=== PATIENT | male | born 1980 | race Two or more races ===

== ENCOUNTER 2016-11-18 16:46 | Emergency (ER) | payer SELFPAY ==
[~2016-11-18] VITALS: Ht 188 cm; Wt 74.8 kg
[2016-11-18 17:30] LABS: BASOPHILS # (AUTO) 0.5 /CMM (0.0-0.2); BASOPHILS % (AUTO) 4.6 % (0.0-2.0); DIFF TOTAL % 100 %; EOSINOPHILS % (AUTO) 0.4 % (0.0-6.0); HEMATOCRIT 47 % (39-51); HEMOGLOBIN 16.3 g/dL (13.5-17.5); LYMPHOCYTES % (AUTO) 8.3 % (20.0-44.0); MEAN CORPUSCULAR HEMOGLOBIN 29 PG (26.0-33.0); MEAN CORPUSCULAR HGB CONC 34 g/dl (31.0-36.0); MEAN CORPUSCULAR VOLUME 85 fL (80-96); MONOCYTES # (AUTO) 1.1 /CMM (0.1-1.30); MONOCYTES % (AUTO) 8.9 % (2.0-12.0); NEUTROPHILS # (AUTO) 9.2 /CMM (1.8-8.9); NEUTROPHILS % (AUTO) 77.8 % (43.0-81.0); PLATELET COUNT (AUTO) 268 /CMM (150-450); RED BLOOD CELL COUNT(AUTO) 5.59 MIL/uL (4.5-6.0); WHITE BLOOD COUNT (AUTO) 11.8 K/uL (4.3-11.0)
[2016-11-18 17:34] LABS: ALANINE AMINOTRANSFERASE 56 U/L (12-78); ALBUMIN 4.7 g/dL (3.4-5.0); ANION GAP 15 (5-14); ASPARTATE AMINOTRANSFERASE 60 U/L (15-37); BILIRUBIN,DIRECT 0.3 mg/dL (0.0-0.2); BILIRUBIN,TOTAL 1.3 mg/dL (0.2-1.0); CALCIUM, SERUM 9.1 mg/dL (8.5-10.1); CARBON DIOXIDE 27 mmol/L (21-32); CHLORIDE 98 mmol/L (98-107); GFR 85 mL/min (>60); GLUCOSE 95 mg/dL (74-106); POTASSIUM 3.9 mmol/L (3.5-5.1); SALICYLATE 2.8 mg/dL (2.8-20.0); SODIUM SERUM 136 mmol/L (136-145); TOTAL PROTEIN, SERUM 8.6 g/dL (6.4-8.2); UREA NITROGEN, BLOOD 15 mg/dL (7-18)
[2016-11-18 17:34] LABS: KETONES,URINE 40 (NEGATIVE); LEUKOCYTE ESTERASE ,URINE Negative (NEGATIVE)
[2016-11-18 17:39] LABS: CANNABINOID, URINE NEGATIVE (NEGATIVE); PHENCYCLIDINE SCREEN,URINE NEGATIVE (NEGATIVE)
[2016-11-18 17:41] LABS: ACETAMINOPHEN 0 ug/ml (10-30)
[2016-11-18 17:48] LABS: ADD UA MICROSCOPIC YES
[2016-11-18] MEDS ORDERED: LORAZEPAM INJ 2 MG/ML VIAL ONE (17:49)
[2016-11-18] MEDS ORDERED: IV NS 0.9% 1,000 ML ONE (17:49)
[2016-11-18] MEDS ORDERED: IV SET PRIMARY 1 EA INFUS.SET MC ONE (17:49)
[2016-11-18 17:51] LABS: ADD URINE CULTURE NO; WBC,URINE 0-2 /HPF (0-3)
[2016-11-18] MEDS ORDERED: LORAZEPAM INJ 2 MG/ML VIAL IV ONE (18:00)
[2016-11-18] MEDS ORDERED: IV NS 0.9% 1,000 ML BAG IV ONE (18:00)
[2016-11-18 18:47] LABS: LYMPHOCYTES % (MANUAL) 9 % (16-48)
[2016-11-18 18:49] LABS: PLATELET ESTIMATE ADEQUATE
[2016-11-19 05:55] VITALS: BP 128/75
== END 2016-11-19 05:56 | disposition home or self-care (01) ==
LOC: ER 16:48
DX: F10.129 Alcohol abuse with intoxication, unspecified (principal); F15.10 Other stimulant abuse, uncomplicated; D72.829 Elevated white blood cell count, unspecified
CPT/HCPCS: 36415; 80048-TC; 80076-TC; 80305; 81000-TC; 85025-TC; A4606; G6038-TC; G6039-TC; G6040-TC; J2060; J7030; Z7610

== ENCOUNTER 2018-06-28 08:47 | Emergency (ER) | payer OTHER ==
[~2018-06-28] VITALS: Ht 190.5 cm; Wt 81.6 kg
[2018-06-28 08:47] VITALS: BP 186/80
== END 2018-06-28 09:24 | disposition home or self-care (01) ==
LOC: ER 08:48
DX: F15.10 Other stimulant abuse, uncomplicated (principal)
CPT/HCPCS: 71045; 99283; A4606; Z7610

== ENCOUNTER 2018-10-19 00:37 | Emergency (ER) | payer MEDICAID, OTHER ==
[~2018-10-19] VITALS: Ht 177.8 cm; Wt 83.9 kg
--- NOTE | 2018-10-19 00:40 | NUR ---
Pt BIBRA C/O "Doing a lot of meth". Pt very anxious and restless. Pt admits to abuse alcohol. Pt is tachycardic in the 130s, tachypnic. Pt denies HI and SI. Pending eval from .
--- NOTE | 2018-10-19 00:50 | NUR ---
Patient does not wish to proceed with medical care recommended by Dr. QUINTERO. Patient given information related to possible complications, up to and including , which could occur as a result of leaving the hospital at this time. Patient verbalizes understanding of risks involved due to leaving against medical advice. Patient has signed AMA form. AAXO4. Denies SI/HI.
--- NOTE | 2018-10-19 00:50 | NUR ---
Pt AAXO4. Pt stating wanting to leave and left AMA.
[2018-10-19] MEDS ORDERED: LORAZEPAM INJ 2 MG/ML VIAL IV ONE (01:00)
[2018-10-19 01:09] VITALS: BP 150/92
[2018-10-19 01:12] LABS: APPEARANCE,URINE CLEAR (CLEAR); BILIRUBIN,URINE NEGATIVE (NEGATIVE); BLOOD, URINE NEGATIVE Ery/uL (NEGATIVE); COLOR,URINE YELLOW (YELLOW); KETONES,URINE NEGATIVE (NEGATIVE); LEUKOCYTE ESTERASE ,URINE NEGATIVE (NEGATIVE); NITRITE, URINE NEGATIVE (NEGATIVE); PROTEIN,URINE NEGATIVE (NEGATIVE); UGLUCOSE NEGATIVE (NEGATIVE); UROBILINOGEN,URINE 0.2 EU/dL (0.2)
== END 2018-10-19 01:11 | disposition left against medical advice (07) ==
LOC: ER 00:39
DX: F15.10 Other stimulant abuse, uncomplicated (principal); J45.909 Unspecified asthma, uncomplicated; I10 Essential (primary) hypertension
CPT/HCPCS: 80305; 81000-TC

== ENCOUNTER 2018-10-19 02:04 | Emergency (ER) | payer MEDICAID, OTHER ==
[~2018-10-19] VITALS: Ht 193 cm; Wt 90.7 kg
--- NOTE | 2018-10-19 02:04 | NUR ---
Pt very anxious and restless. Pt admits to abuse alcohol. Pt is tachycardic in the 130s, tachypnic. Pt denies HI and SI. Pending eval from
[2018-10-19 02:05] VITALS: BP 127/84
--- NOTE | 2018-10-19 02:20 | NUR ---
Pt keeps coming out of bed 6, wandering, and asking questions, not able to sit down in one place for long periods of time.
[2018-10-19] MEDS ORDERED: LORAZEPAM 1 MG TABLET PO ONE (02:30)
[2018-10-19] MEDS ORDERED: LORAZEPAM 1 MG TABLET ONE (02:35)
--- NOTE | 2018-10-19 02:55 | NUR ---
Patient eloped from facility. ER MD notified.
== END 2018-10-19 03:00 | disposition left against medical advice (07) ==
LOC: ER 02:06
DX: F15.10 Other stimulant abuse, uncomplicated (principal); R00.0 Tachycardia, unspecified; Z59.0 Homelessness